=== PATIENT | male | born 1970 | race Caucasian/White ===

== ENCOUNTER → 2021-06-10 | Outpatient (CLI) | payer BC | LOC: M LABSMTC 11:34 | PROVIDERS: ATTEND Anesthesiology | DX: Z01.812 Encounter for preprocedural laboratory examination (principal); Z11.52 Encounter for screening for COVID-19 ==

== ENCOUNTER 2021-06-15 11:20 | Day surgery (SDC) | payer BC ==
[~2021-06-15] VITALS: Ht 177.8 cm; Wt 82.1 kg
[~2021-06-15 11:20] MED LIST: NS 1,000 ML IV ONE
[2021-06-15] MEDS ORDERED: ePHEDrine SULFATE 25 MG/5 ML(5MG/ML) SYRINGE As Ordered ONE (12:26)
[2021-06-15 13:07] VITALS: BP 102/58
== END 2021-06-15 13:08 | disposition home or self-care (01) ==
LOC: M OPP 11:20
PROVIDERS: ATTEND Internal Medicine Gastroenterology
DX: Z12.11 Encounter for screening for malignant neoplasm of colon (principal); Z86.010 Personal history of colon polyps; Z80.0 Family history of malignant neoplasm of digestive organs; K63.5 Polyp of colon; K57.30 Diverticulosis of large intestine without perforation or abscess without bleeding; K64.0 First degree hemorrhoids; Z85.46 Personal history of malignant neoplasm of prostate

== ENCOUNTER → 2021-11-24 | Outpatient (CLI) | payer BC | LOC: M LABSMTC 09:13 | PROVIDERS: ATTEND Pediatrics | DX: Z20.822 Contact with and (suspected) exposure to COVID-19 (principal) ==